=== PATIENT | female | born 1980 | race Caucasian/White ===

== ENCOUNTER 2017-12-20 11:01 | Emergency (ER) | payer MEDICAID ==
[~2017-12-20] VITALS: Ht 172.7 cm; Wt 113.0 kg
[~2017-12-20 11:01] MED LIST: HYOS-13 PO; PANT-47 PO; PROM25TA14 PO
[2017-12-20] MEDS ORDERED: tetanus & diphtheria toxoid (Td) vaccine 0.5ml IMVAC ONE (12:40)
[2017-12-20] MEDS ORDERED: CLIN150C2 PO (12:55)
[2017-12-20] MEDS ORDERED: TETanus/Pertussis (Acell)/Diphther VAC/PF (Tdap-Adult) 0.5ml syringe IM ONE (13:10)
[2017-12-20 13:24] VITALS: BP 148/98
== END 2017-12-20 13:26 | disposition home or self-care (01) ==
LOC: ER 11:01
DX: S81.812A Laceration without foreign body, left lower leg, initial encounter (principal); W22.8XXA Striking against or struck by other objects, initial encounter; Y93.89 Activity, other specified; Y92.89 Other specified places as the place of occurrence of the external cause; Y99.8 Other external cause status; Z88.5 Allergy status to narcotic agent; Z79.899 Other long term (current) drug therapy
CPT/HCPCS: 73590; 90471; 90715; 99284

== ENCOUNTER 2022-06-04 09:51 | Inpatient (IN) | payer MEDICAID ==
[~2022-06-04] VITALS: Ht 172.7 cm; Wt 109.1 kg
[2022-06-04] VITALS (24 sets, daily range): BP systolic 97–181; BP diastolic 46–96
--- NOTE | 2022-06-04 09:57 | NUR ---
discussed pt triage with eleuterio gottlieb. per bull, no new labs needed at this time
[2022-06-04] MEDS ORDERED: ondansetron/PF 4mg/2ml inj IV ONE (12:10)
[2022-06-04] MEDS ORDERED: LORazepam 2 mg/ml vial IV ONE (12:10)
[2022-06-04] MEDS ORDERED: normal saline 1000ML IV soln IVB ONE (12:10)
[2022-06-04] MEDS ORDERED: pantoprazole 40 MG vial IV ONE (12:10)
[2022-06-04 12:27] LABS: BASOPHILS # (AUTO) 0.2 X10'3 (0-0.2); BASOPHILS % (AUTO) 1.2 % (0-1); EOSINOPHILS % (AUTO) 0.3 % (0-6); HEMATOCRIT 45.5 % (35.0-45.0); HEMOGLOBIN 15.2 g/dl (12.0-16.0); LYMPHOCYTES # (AUTO) 3.6 X10'3 (1.1-4.8); LYMPHOCYTES % (AUTO) 26.7 % (21-51); MEAN CORPUSCULAR HEMOGLOBIN 28.9 PG (27.0-31.0); MEAN CORPUSCULAR HGB CONC 33.5 g/dL (33.0-36.5); MEAN CORPUSCULAR VOLUME 86.3 FL (78-98); MEAN PLATELET VOLUME 8.3 FL (7.4-10.4); MONOCYTES # (AUTO) 0.8 X10'3 (0-0.9); MONOCYTES % (AUTO) 5.6 % (2-12); NEUTROPHILS % (AUTO) 66.2 % (42-75); PLATELET COUNT 385 X10'3 (140-440); RED BLOOD COUNT 5.27 X10'6 (4.20-5.60); RED CELL DISTRIBUTION WIDTH 15.3 % (11.5-14.5); WHITE BLOOD COUNT 13.6 X10'3 (4.5-11.0)
[2022-06-04] MEDS: morphine 2 MG/ML inj. syringe IV PRN ×2 (12:34→17:31)
[2022-06-04 12:41] LABS: ALANINE AMINOTRANSFERASE 37 U/L (12-78); ALBUMIN 3.7 G/DL (3.4-5.0); ALBUMIN/GLOBULIN RATIO 1.1 (1.1-1.5); ALKALINE PHOSPHATASE 90 IU/L (46-116); ANION GAP 10 (8-16); ASPARTATE AMINO TRANSFERASE 14 U/L (10-37); BILIRUBIN,TOTAL 0.5 MG/DL (0.1-1.0); BLOOD UREA NITROGEN 8 MG/DL (7-18); BUN/CREATININE RATIO 9.5 (6.6-38.0); CALCIUM 9.1 MG/DL (8.5-10.1); CHLORIDE 105 MMOL/L (99-107); CREATININE 0.84 MG/DL (0.40-0.90); GLUCOSE 115 MG/DL (70-104); LIPASE 63 U/L (73-393); POTASSIUM 3.9 MMOL/L (3.5-5.1); SODIUM 137 MMOL/L (135-145); TOTAL CARBON DIOXIDE 21.6 MMOL/L (24-32); eGFR 74 ML/MIN
--- NOTE | 2022-06-04 12:57 | NUR ---
Tyson at the pharmacy made aware of protonix unavailable in [place]. Was told medication will be delivered.
[2022-06-04] MEDS ORDERED: pantoprazole 40MG/NS 100ML BAG 100 ML IV ONE (13:00)
[2022-06-04] MEDS ORDERED: HYDROcodone/acetaminophen 10/325mg tab PO PRN ×2 (14:30→17:10)
[2022-06-04] MEDS ORDERED: morphine 2 MG/ML inj. syringe IV PRN ×2 (14:30→15:55)
[2022-06-04] MEDS ORDERED: potassium CL 10mEq/100ml bag 100 ML IV PRN (14:30)
[2022-06-04] MEDS ORDERED: ondansetron/PF 4mg/2ml inj IV PRN ×2 (14:30→15:55)
[2022-06-04] MEDS ORDERED: acetaminophen 325mg tablet PO PRN ×2 (14:30)
[2022-06-04] MEDS ORDERED: magnesium 2GM in 50ml NS 50 ML IV PRN (14:30)
[2022-06-04] MEDS ORDERED: magnesium hydroxide 30ml (MOM) UD suspension PO PRN (14:30)
[2022-06-04] MEDS ORDERED: magnesium Cl slow-release 64mg tablet PO PRN (14:30)
[2022-06-04] MEDS ORDERED: HYDROcodone/acetaminophen 5mg/325mg tablet PO PRN ×2 (14:30→17:10)
[2022-06-04] MEDS ORDERED: mag hydrox/Alum hydrox/simeth 30ml oral suspension PO PRN (14:30)
[2022-06-04] MEDS ORDERED: POTASSIUM BICARB 20meq eff tab 20 MEQ TABLET.EFF PO PRN ×2 (14:30)
[2022-06-04] MEDS ORDERED: magnesium 4gm in 100ml NS 100 ML IV PRN (14:30)
[2022-06-04 14:55] LABS: MAGNESIUM 1.9 MG/DL (1.5-2.4)
[2022-06-04] MEDS ORDERED: INDOCYANINE GREEN 25 MG/10 ML VIAL IV STA (14:55)
[2022-06-04] MEDS: dextrose 5%-1/2 normal saline 1,000 ML IV SCH (15:03)
[2022-06-04] MEDS ORDERED: BUPIVAcaine/PF 2.5 mg/ml (0.25%) 30ml vial ONE (15:13)
[2022-06-04] MEDS ORDERED: LIDOcaine 1% 30ml preserv. free vial ONE (15:13)
[2022-06-04] MEDS ORDERED: SERT-433 PO (15:21)
[2022-06-04] MEDS ORDERED: OMEP20CA16 PO (15:21)
[2022-06-04] MEDS ORDERED: ONDA4TAB12 PO (15:21)
[2022-06-04] MEDS: piperacillin/tazo 3.375gm/50ml 50 ML IV SCH (15:23)
[2022-06-04 15:29] LABS: URINE HCG NEGATIVE (NEG)
[2022-06-04] MEDS ORDERED: proCHLORperazine 10 MG/2 ml inj IV PRN (15:55)
[2022-06-04] MEDS ORDERED: ringers solution, lacted 1,000 ML IV SCH (15:55)
[2022-06-04] MEDS ORDERED: meperidine/PF 25mg/ml syringe IV PRN ×2 (15:55)
--- NOTE | 2022-06-04 16:00 | NUR ---
Patient sent to OR via stretcher.
[2022-06-04] MEDS ORDERED: sevoflurane 250ml liquid IH ONE (16:01)
[2022-06-04] MEDS ORDERED: fentaNYL/PF 50MCG/1 ML 2ML syringe ONE ×2 (16:03→16:37)
[2022-06-04] MEDS ORDERED: rocuronium 10mg/ml inj IV ONE (16:04)
[2022-06-04] MEDS ORDERED: LIDOcaine 2% (20mg/ml) 5ml vial ONE (16:04)
[2022-06-04] MEDS ORDERED: propofol inj 20 ML IV ONE (16:04)
[2022-06-04] MEDS ORDERED: midazolam 1 mg/ML 2ml injection ONE (16:04)
[2022-06-04 16:07] LABS: URINE AMPHETAMINE SCREEN NEGATIVE (Neg); URINE BARBITUATE SCREEN NEGATIVE (Neg); URINE BENZODIAZEPINES SCREEN NEGATIVE (Neg); URINE CANNABINOID SCREEN POSITIVE (Neg); URINE COCAINE SCREEN NEGATIVE (Neg); URINE METHADONE SCREEN NEGATIVE (Neg); URINE OPIATE SCREEN POSITIVE (Neg); URINE PHENCYCLIDINE SCREEN NEGATIVE (Neg)
[2022-06-04] MEDS ORDERED: sugammadex 200mg/2ml injection IV ONE (17:05)
[2022-06-04] MEDS ORDERED: meperidine/PF 25mg/ml syringe ONE (17:05)
[2022-06-04] MEDS ORDERED: naloxone 0.4 mg/ml inj IV PRN (17:10)
--- NOTE | 2022-06-04 17:10 | NUR ---
Received from OR via HOSPITAL BED, accompanied by Anesthesiologist and report given by [place] Anesthesiologist. PATIENT WAKING UP, DENIES PAIN, V/S WNL, SCD ON, 22G TO RH, ABDOMEN LAP SITE X4 C/D/I. Addendum: 06/04/22 at 1738 by Fernando Littlejohn RN Amended: Links added.
[2022-06-04] MEDS ORDERED: ondansetron/PF 4mg/2ml inj ONE (17:11)
[2022-06-04] MEDS ORDERED: dexamethasone sod phosphate 4mg/ml inj. ONE (17:11)
[2022-06-04] MEDS ORDERED: hydrALAZINE 20mg/ml inj. IV ONE (17:11)
[2022-06-04] MEDS ORDERED: neostigmine methylsulfate 1 MG/ML 10ml vial ONE (17:11)
[2022-06-04] MEDS ORDERED: glycopyrrolate 0.2mg/ml inj ONE (17:11)
[2022-06-04] MEDS: meperidine/PF 25mg/ml syringe IV PRN ×2 (17:18→17:45)
[2022-06-04] MEDS ORDERED: ondansetron 4mg rapidly disintigrating tab PO PRN (17:25)
[2022-06-04] MEDS: morphine 4 MG/ML inj SYRINge IV PRN ×2 (17:40→17:50)
[2022-06-04] MEDS ORDERED: acetaminophen 1,000mg/100ml IV 100 ML IV ONE (18:05)
[2022-06-04] MEDS ORDERED: glycopyrrolate 0.2mg/ml inj IV PRN (18:35)
--- NOTE | 2022-06-04 19:10 | NUR ---
PATIENT HAS MET ALL CRITERIA FOR TRANSFER TO ORTHO FLOOR. VSS. DRESSINGS INTACT. BED LOW, CALL LIGHT PRESENT AND 2 RAILS UP. RN PRESENT TO ACCEPT CARE OF PATIENT AND REPORT HAS BEEN CALLED. ALL QUESTIONS ANSWERED TO ACCEPTING RN. Addendum: 06/04/22 at 1918 by Fernando Littlejohn RN Amended: Links added.
--- NOTE | 2022-06-04 19:30 | NUR ---
PATIENT ADMITTED TO ROOM 4011B FROM RECOVERY ROOM AFTER ROBOTIC LAPAROSCOPIC CHOLECYSTECTOMY WAS DONE BY DR. CORNELIUS. PLACED COMFORTABLE IN BED. VITAL SIGNS MONITORED.
[2022-06-04] MEDS: docusate sod 100mg capsule PO SCH (20:00)
[2022-06-04] MEDS ORDERED: K and/or MAG REPLACEMENT MC SCH (20:00)
[2022-06-04] MEDS ORDERED: sertraline 50mg tablet PO SCH (21:00)
[2022-06-05] MEDS: piperacillin/tazo 3.375gm/50ml 50 ML IV SCH ×2 (00:54→07:57)
[2022-06-05] MEDS: dextrose 5%-1/2 normal saline 1,000 ML IV SCH (00:55)
[2022-06-05 02:00] VITALS: BP 114/57
[2022-06-05 06:00] VITALS: BP 106/63
--- NOTE | 2022-06-05 06:27 | NUR ---
Problems reprioritized. Patient report given, questions answered & plan of care reviewed with MANOLO BLANC.
--- NOTE | 2022-06-05 06:53 | NUR ---
Patient in room ORTHO 4011B. I have received report from SUPRIYA EPPS RN and had the opportunity to ask questions and assume patient care.
[2022-06-05 07:49] LABS: BASOPHILS # (AUTO) 0.1 X10'3 (0-0.2); BASOPHILS % (AUTO) 0.4 % (0-1); EOSINOPHILS % (AUTO) 0 % (0-6); HEMOGLOBIN 13.8 g/dl (12.0-16.0); LYMPHOCYTES # (AUTO) 2.3 X10'3 (1.1-4.8); LYMPHOCYTES % (AUTO) 12.7 % (21-51); MEAN CORPUSCULAR HEMOGLOBIN 28.6 PG (27.0-31.0); MEAN CORPUSCULAR HGB CONC 32.7 g/dL (33.0-36.5); MEAN CORPUSCULAR VOLUME 87.3 FL (78-98); MEAN PLATELET VOLUME 8.9 FL (7.4-10.4); MONOCYTES # (AUTO) 0.7 X10'3 (0-0.9); MONOCYTES % (AUTO) 4.1 % (2-12); NEUTROPHILS # (AUTO) 14.9 X10'3 (1.8-7.7); NEUTROPHILS % (AUTO) 82.8 % (42-75); PLATELET COUNT 342 X10'3 (140-440); RED BLOOD COUNT 4.81 X10'6 (4.20-5.60); RED CELL DISTRIBUTION WIDTH 15.5 % (11.5-14.5)
[2022-06-05] MEDS: docusate sod 100mg capsule PO SCH (08:00)
[2022-06-05] MEDS ORDERED: enoxaparin 40mg/0.4ml syringe SUBCUT SCH (08:00)
[2022-06-05 08:17] LABS: ALANINE AMINOTRANSFERASE 45 U/L (12-78); ALBUMIN 3.2 G/DL (3.4-5.0); ALBUMIN/GLOBULIN RATIO 1.1 (1.1-1.5); ALKALINE PHOSPHATASE 75 IU/L (46-116); ANION GAP 15 (8-16); ASPARTATE AMINO TRANSFERASE 27 U/L (10-37); BILIRUBIN,TOTAL 0.5 MG/DL (0.1-1.0); BLOOD UREA NITROGEN 8 MG/DL (7-18); BUN/CREATININE RATIO 9.8 (6.6-38.0); CALCIUM 8.5 MG/DL (8.5-10.1); CHLORIDE 105 MMOL/L (99-107); CREATININE 0.82 MG/DL (0.40-0.90); GLUCOSE 160 MG/DL (70-104); MAGNESIUM 1.9 MG/DL (1.5-2.4); POTASSIUM 4.1 MMOL/L (3.5-5.1); SODIUM 141 MMOL/L (135-145); TOTAL CARBON DIOXIDE 21.1 MMOL/L (24-32); TOTAL PROTEIN 6.2 G/DL (6.4-8.2); eGFR 76 ML/MIN
--- NOTE | 2022-06-05 08:58 | NUR ---
Malnutrition consult: Pt reports wt loss with decreased appetite per malnutrition risk screen with RN. Pt admit for acute calculous cholecystitis, now POD #1 s/p laparoscopic cholecystectomy. Per physician notes pt has been experiencing N/V with poor tolerance to solid food therefore pt has been having meal replacement drinks. Pt with scaled wt h/o 109 kg 05/24, current documented wt is 109.09 kg. Pending documentation of PO intake on clear liquid diet. Per EMR pt with no decrease in muscle strength or edema and per physician notes pt appears well developed well nourished. Pt likely experienced some changes in PO intake and weight r/t N/V and abdominal pain, though pt currently lacks a minimum of two criteria for malnutrition. Will continue to follow. Addendum: 06/05/22 at [address] Amended: Links added.
[2022-06-05 10:00] VITALS: BP 110/62
--- NOTE | 2022-06-05 12:05 | NUR ---
PATIENT STABLE AND APPROPRIATE FOR DISCHARGE, IV REMOVED, TELE REMOVED, EDUCATION GIVEN, ALL BELONGINGS SENT WITH PATIENT, PATIENT TAKEN TO LOBBY BY WHEELCHAIR TO AN AWAITING CAR WHERE SIGNIFICANT OTHER WILL TAKE THE PATIENT HOME
== END 2022-06-05 12:05 | disposition home or self-care (01) | DRG 263 ==
LOC: ER 09:51 → ED HOLD 14:39 → ORTHO 4S 19:10
PROVIDERS: ADMIT Internal Medicine; ATTEND Internal Medicine
PROC: 8E0W4CZ Robotic Assisted Procedure of Trunk Region, Percutaneous Endoscopic Approach (ICD-10-PCS; 2022-06-04)
PROC: BF532Z0 Other Imaging of Gallbladder and Bile Ducts using Fluorescing Agent, Intraoperative (ICD-10-PCS; 2022-06-04)
PROC: 0FT44ZZ Resection of Gallbladder, Percutaneous Endoscopic Approach (ICD-10-PCS; principal; 2022-06-04 16:01)
DX: K80.12 Calculus of gallbladder with acute and chronic cholecystitis without obstruction (principal); E28.2 Polycystic ovarian syndrome; E66.01 Morbid (severe) obesity due to excess calories; Z20.822 Contact with and (suspected) exposure to COVID-19; F17.210 Nicotine dependence, cigarettes, uncomplicated; K21.9 Gastro-esophageal reflux disease without esophagitis; Z68.36 Body mass index [BMI] 36.0-36.9, adult; Z88.5 Allergy status to narcotic agent; Z79.899 Other long term (current) drug therapy
CPT/HCPCS: 36415; 80053; 80305; 81025; 83690; 83735; 85025; 87081; 87635; 96374; 96375; 99285; A4215; A4618; A7000; C9113; G0378; J0131; J0360; J1100; J1650; J2060; J2175; J2250; J2270; J2405; J2543; J2704; J2710; J3010; J3490; J7030; J7042; J7120

== ENCOUNTER 2022-06-12 10:48 | Emergency (ER) | payer MEDICAID ==
[~2022-06-12] VITALS: Ht 172.7 cm; Wt 109.1 kg
[~2022-06-12 10:48] MED LIST changes: -HYOS-13 PO; +OMEP20CA16 PO; +ONDA4TAB12 PO; -PANT-47 PO; -PROM25TA14 PO; +SERT-433 PO
[2022-06-12 10:58] VITALS: BP 184/96
[2022-06-12] MEDS ORDERED: propranolol 10mg tablet PO ONE (11:20)
[2022-06-12 11:44] LABS: BASOPHILS # (AUTO) 0.1 X10'3 (0-0.2); BASOPHILS % (AUTO) 0.9 % (0-1); EOSINOPHILS # (AUTO) 0.1 X10'3 (0-0.9); EOSINOPHILS % (AUTO) 0.5 % (0-6); HEMATOCRIT 46.5 % (35.0-45.0); HEMOGLOBIN 15.3 g/dl (12.0-16.0); LYMPHOCYTES # (AUTO) 2.9 X10'3 (1.1-4.8); LYMPHOCYTES % (AUTO) 22.3 % (21-51); MEAN CORPUSCULAR HEMOGLOBIN 28.8 PG (27.0-31.0); MEAN CORPUSCULAR HGB CONC 32.9 g/dL (33.0-36.5); MEAN CORPUSCULAR VOLUME 87.6 FL (78-98); MEAN PLATELET VOLUME 8.8 FL (7.4-10.4); MONOCYTES # (AUTO) 0.6 X10'3 (0-0.9); MONOCYTES % (AUTO) 4.8 % (2-12); NEUTROPHILS # (AUTO) 9.5 X10'3 (1.8-7.7); NEUTROPHILS % (AUTO) 71.5 % (42-75); PLATELET COUNT 397 X10'3 (140-440); RED CELL DISTRIBUTION WIDTH 15.6 % (11.5-14.5); WHITE BLOOD COUNT 13.2 X10'3 (4.5-11.0)
[2022-06-12 12:09] LABS: ALBUMIN 3.6 G/DL (3.4-5.0); ANION GAP 12 (8-16); BILIRUBIN,TOTAL 0.4 MG/DL (0.1-1.0); BLOOD UREA NITROGEN 9 MG/DL (7-18); BUN/CREATININE RATIO 12.3 (6.6-38.0); CALCIUM 8.9 MG/DL (8.5-10.1); CHLORIDE 104 MMOL/L (99-107); CREATININE 0.73 MG/DL (0.40-0.90); GLUCOSE 170 MG/DL (70-104); POTASSIUM 3.7 MMOL/L (3.5-5.1); SODIUM 137 MMOL/L (135-145); TOTAL CARBON DIOXIDE 21.4 MMOL/L (24-32); TOTAL PROTEIN 7.2 G/DL (6.4-8.2); eGFR 87 ML/MIN
[2022-06-12 12:10] LABS: ALANINE AMINOTRANSFERASE 41 U/L (12-78); ALKALINE PHOSPHATASE 90 IU/L (46-116); ASPARTATE AMINO TRANSFERASE 11 U/L (10-37)
[2022-06-12 12:20] LABS: LIPASE 51 U/L (73-393)
[2022-06-12] MEDS ORDERED: HYDR-3686 PO (13:27)
== END 2022-06-12 13:40 | disposition home or self-care (01) ==
LOC: ER 10:48
DX: F41.9 Anxiety disorder, unspecified (principal); R07.9 Chest pain, unspecified; K21.9 Gastro-esophageal reflux disease without esophagitis; Z88.5 Allergy status to narcotic agent; Z79.899 Other long term (current) drug therapy
CPT/HCPCS: 36415; 71045; 80053; 83690; 84443; 84484; 85025; 93005; 99285

== ENCOUNTER 2022-09-07 10:10 | Day surgery (SDC) | payer MEDICAID ==
[~2022-09-07] VITALS: Ht 172.7 cm; Wt 106.8 kg
[2022-09-07 10:20] VITALS: BP 145/82
[2022-09-07] MEDS ORDERED: LIDOcaine Viscous 15ml cup ONE (10:39)
[2022-09-07] MEDS ORDERED: fentaNYL/PF 50MCG/1 ML 2ML syringe ONE (10:39)
[2022-09-07] MEDS ORDERED: MIDAZolam 1 MG/ML 5ML VIAL ONE (10:39)
[2022-09-07] MEDS ORDERED: METF-438 PO (10:50)
[2022-09-07] MEDS ORDERED: CHOL500049 PO (10:52)
[2022-09-07 12:42] VITALS: BP 121/61
[2022-09-07 12:52] VITALS: BP 119/64
[2022-09-07 13:02] VITALS: BP 94/69
[2022-09-07 13:12] VITALS: BP 109/57
== END 2022-09-07 13:28 | disposition home or self-care (01) ==
LOC: GI LAB 10:10
PROVIDERS: ATTEND Internal Medicine Gastroenterology
DX: K31.7 Polyp of stomach and duodenum (principal); K22.70 Barrett's esophagus without dysplasia; K31.89 Other diseases of stomach and duodenum; K21.9 Gastro-esophageal reflux disease without esophagitis; K44.9 Diaphragmatic hernia without obstruction or gangrene
CPT/HCPCS: 43239; J2250; J3010; J7030; Z7512; 99152; A4620